=== PATIENT | female | born 1955 | race Caucasian/White ===

== ENCOUNTER 2018-07-25 15:43 | Inpatient (IN) | payer MEDICARE, MEDICAID ==
[~2018-07-25] VITALS: Ht 167.6 cm; Wt 69.4 kg
--- NOTE | 2018-07-25 15:55 | NUR ---
PT IS IN ROOM #1B. DR MOLINA EVALUATED THE PT.
[2018-07-25 16:17] LABS: BASOPHILS % (AUTO) 0.5 % (0.0-2.0); EOSINOPHILS # (AUTO) 0.1 K/uL (0.0-0.7); EOSINOPHILS % (AUTO) 1.3 % (0.0-7.0); HEMATOCRIT 39.6 % (31.2-41.9); HEMOGLOBIN 13.6 g/dL (10.9-14.3); LYMPHOCYTES # (AUTO) 1.3 K/uL (20.0-40.0); LYMPHOCYTES % (AUTO) 24.3 % (20.5-51.5); MEAN CORPUSCULAR HEMOGLOBIN 33.1 uug (24.7-32.8); MEAN CORPUSCULAR HGB CONC 35 g/dL (32.3-35.6); MEAN CORPUSCULAR VOLUME 96.1 fL (75.5-95.3); MONOCYTES # (AUTO) 0.5 K/uL (2.0-10.0); MONOCYTES % (AUTO) 9.1 % (0.0-11.0); NEUTROPHILS # (AUTO) 3.4 K/uL (1.8-8.9); NEUTROPHILS % (AUTO) 64.8 % (38.5-71.5); PLATELET COUNT (AUTO) 202 K/uL (179-408); RED BLOOD CELL COUNT(AUTO) 4.12 MIL/uL (3.63-4.92); WHITE BLOOD COUNT (AUTO) 5.2 K/uL (3.8-11.8)
[2018-07-25] MEDS ORDERED: DOCU250C14 PO (16:19)
[2018-07-25] MEDS ORDERED: ASPI81TA31 PO (16:19)
[2018-07-25] MEDS ORDERED: ESOM40CA PO (16:19)
[2018-07-25 16:36] LABS: CARBON DIOXIDE 27 mmol/L (21-32); CHLORIDE 102 mmol/L (98-107); CREATININE 0.7 mg/dL (0.6-1.3); GLUCOSE 109 mg/dL (74-106); POTASSIUM 3.7 mmol/L (3.5-5.1); UREA NITROGEN, BLOOD 14 mg/dL (7-18)
[2018-07-25 16:48] LABS: ETHANOL > 3 MG/DL (0-0)
[2018-07-25 16:50] LABS: ALANINE AMINOTRANSFERASE 33 U/L (14-59); ALKALINE PHOSPHATASE 82 U/L (50-136); ASPARTATE AMINOTRANSFERASE 19 U/L (15-37); BILIRUBIN,DIRECT 0.1 mg/dL (0.0-0.2); BILIRUBIN,TOTAL 0.5 mg/dL (0.2-1.0); CREATINE KINASE, TOTAL 40 U/L (26-192); TOTAL PROTEIN, SERUM 6.5 g/dL (6.4-8.2)
[2018-07-25 16:51] LABS: ACETAMINOPHEN < 2.0 ug/mL (10-30)
[2018-07-25] MEDS ORDERED: ACET325T53 PO (17:36)
[2018-07-25] MEDS ORDERED: ONDA4TAB5 PO (17:36)
[2018-07-25] MEDS ORDERED: BISA10SU8 RC (17:36)
[2018-07-25] MEDS ORDERED: LORA2TAB95 PO (17:36)
[2018-07-25] MEDS ORDERED: SENN-18 PO (17:36)
[2018-07-25] MEDS ORDERED: SIMV20TA6 PO (17:36)
[2018-07-25] MEDS ORDERED: MORP10SO PO (17:36)
[2018-07-25] MEDS ORDERED: OXYC40TA50 PO (17:36)
[2018-07-25] MEDS ORDERED: POLY255P19 PO (17:36)
[2018-07-25] MEDS ORDERED: TEMA30CA PO (17:36)
[2018-07-25] MEDS ORDERED: LACT10SO PO (17:36)
[2018-07-25] MEDS ORDERED: QUET25TA PO (17:36)
--- NOTE | 2018-07-25 17:47 | NUR ---
MHU WAS CALLED TO GET PT's BED ASSIGNED. NO FEMALE BEDS AVAILABLE AT THIS TIME.
[2018-07-25 17:58] LABS: *BILIRUBIN,URIN NEGATIVE (NEGATIVE); *BLOOD, URINE NEGATIVE (NEGATIVE); *CLARITY,URINE CLEAR (CLEAR); *COLOR,URINE YELLOW (YELLOW); *KETONES,URINE NEGATIVE (NEGATIVE); *PROTEIN,URINE NEGATIVE (NEGATIVE); *UROBILINOGEN,URINE 0.2 E.U./dl (NORMAL); LEUKOCYTE ESTERASE ,URINE NEGATIVE (NEGATIVE); NITRITE, URINE NEGATIVE (NEGATIVE); UGLUCOSE NEGATIVE (NEGATIVE)
[2018-07-25 18:02] LABS: *AMPHETAMINE, URINE NEGATIVE (NEGATIVE); *BARBITURATE, URINE NEGATIVE (NEGATIVE); *CANNABINOID, URINE NEGATIVE (NEGATIVE); *COCCAINE, URINE NEGATIVE (NEGATIVE); *OPIATE, URINE POSITIVE (NEGATIVE); *PHENCYCLIDINE SCREEN,URINE NEGATIVE (NEGATIVE)
--- NOTE | 2018-07-25 19:10 | NUR ---
REPORT GIVEN TO SDC TEACHER RN.
--- NOTE | 2018-07-25 19:15 | NUR ---
REPORT WAS TRANSFERED TO [facility] ROOM #130A. REPORT WAS GIVEN TO RN MHU.
[2018-07-25] MEDS ORDERED: ACETAMINOPHEN 325 MG TABLET PO PRN ×2 (20:45→21:00)
[2018-07-25] MEDS ORDERED: ONDANSETRON HCL 4 MG TABLET PO PRN (20:45)
[2018-07-25] MEDS ORDERED: Medication Not On Formulary EA (Esomeprazole Mag Trihydrate (Nexium) 40 MG) PO SCH (20:45)
[2018-07-25] MEDS ORDERED: Medication Not On Formulary EA (Lactulose (Duphalac) 30 ML) PO SCH (20:45)
[2018-07-25] MEDS ORDERED: BISACODYL 10 MG SUPP.RECT RC PRN (20:45)
[2018-07-25] MEDS ORDERED: MAGNESIUM HYDROXIDE 30 ML LIQUID UDC PO PRN (21:00)
[2018-07-25] MEDS ORDERED: MAG HYDROX/AL HYDROX/SIMETH 30 ML LIQUID UDC PO PRN (21:00)
[2018-07-25] MEDS ORDERED: Medication Not On Formulary EA (Oxycodone Hcl (Oxycontin) 40 MG) PO SCH (21:00)
[2018-07-25 21:25] VITALS: BP 134/72
[2018-07-25] MEDS: TEMAZEPAM 7.5 MG CAPSULE PO PRN (21:50)
[2018-07-25] MEDS: SIMVASTATIN 20 MG TABLET PO SCH (21:50)
[2018-07-25] MEDS: SENNOSIDES 1 TABLET PO SCH (21:50)
[2018-07-25] MEDS: DOCUSATE SODIUM 250 MG CAPSULE PO SCH (21:52)
[2018-07-25] MEDS: LORAZEPAM 0.5 MG TABLET PO PRN (23:53)
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
--- NOTE | 2018-07-26 01:35 | NUR ---
PATIENT CONTINUE DEMANDING, ARGUMENTATIVE, IRRITABLE. SHE IS YELLING STATING THAT, "THESE ARE ALL LIES. I DID NOT DO THIS, YOU ARE ALL LYING". MULTIPLE REDIRECTION GIVEN. PATIENT WAS EXPLAINED NUMEROUS TIME ABOUT THE [facility]AS[facility]; HOWEVER INEFFECTIVE. PATIENT CONTINUE DEMANDING AND YELLING. SHE ALSO STATED THAT SHE IS HAVING SEVERE NECKS PAIN. DR JEAN WAS NOTIFY AND NEW ORDER OBTAINED TO ADMINISTER OXYCODONE 10MG PO ONE TIME ONLY. ORDER NOTED. AWAITING FOR PHARMACY VERIFICATION. WILL CONTINUE TO MONITOR.
[2018-07-26] MEDS ORDERED: OXYCODONE HCL 10 MG TAB.SR.12H PO ONE (02:00)
[2018-07-26] MEDS ORDERED: OXYCODONE HCL 5 MG TABLET ONE (02:12)
[2018-07-26] MEDS ORDERED: diphenhydrAMINE 50 MG/1 ML VIAL IM STA (02:19)
[2018-07-26] MEDS ORDERED: HALOPERIDOL LACTATE 5 MG/1 ML VIAL IM STA (02:19)
[2018-07-26] MEDS ORDERED: LORAZEPAM 2 MG/1 ML VIAL IM STA (02:19)
--- NOTE | 2018-07-26 02:33 | NUR ---
Chemical Restraint Note: Pt yelling, screaming, histrionic, and crying without provocation. Pt is agitated, verbally aggressive and not redirectable. Pt attempted to crawl on the floor stating she "can't walk", after she was observed ambulating by staff earlier in the shift. Pt refused to get up from the floor. Nursing special education supervisor and staff assisted Pt to bed where she began to yell and scream again. Pt was given Ativan 0.5mg and Restoril 7.5mg previous to this episode, both ineffective. Redirection and and 1:1 interaction attempted multiple times without success. Dr Suarez notified of Pt's behavior, Haldol 5mg, Ativan 1mg, Benadryl 50g IM ordered. IM administered with Pt's cooperation. VS stable, will continue to closely monitor.
--- NOTE | 2018-07-26 04:50 | NUR ---
GPS: Pt.remains asleep at this time. In no acute resp.distress noted. Fall precautions observed. Will continue to monitor.
[2018-07-26 07:30] VITALS: BP 121/81
[2018-07-26] MEDS: ASPIRIN 81 MG TAB.CHEW PO SCH (09:00)
[2018-07-26] MEDS: DOCUSATE SODIUM 250 MG CAPSULE PO SCH (09:00)
[2018-07-26] MEDS: MIRALAX 17 GM POWD.PACK PO SCH (09:00)
[2018-07-26] MEDS: LACTULOSE 20 G/30 ML LIQUID UDC PO SCH ×3 (09:00→16:09)
[2018-07-26] MEDS ORDERED: POLYETHYLENE GLYCOL 3350 238 GM POWDER PO SCH (09:00)
--- NOTE | 2018-07-26 12:45 | NUR ---
Firearms Report: head worker completed and submitted a [employer] firearms report for a DTO certification.
[2018-07-26] MEDS: DIVALPROEX 250 MG TABLET.DR PO SCH ×2 (13:00→16:09)
--- NOTE | 2018-07-26 13:00 | NUR ---
GROUP NOTE: SW offered patient to attend group today; however, patient was asleep and audibly snoring. Patient was unable to be awoken. SW will continue to encourage pt to attend group during scheduled time in the future.
--- NOTE | 2018-07-26 13:30 | NUR ---
GPS: NURSING: MADE ROUNDS IN THE AFTERNOON FOR MY MEDICATIONS ADMINISTRATION, NOTED PATIENT IS STILL SEDATED, SLEEPING AND SNORING, ABLE TO BE AROUSE, BUT WENT BACK TO SLEEP.UNABLE TO GIVE MEDS DUE TO PATIENT BEING SEDATED.
[2018-07-26 16:02] VITALS: BP 121/71
[2018-07-26] MEDS: LORAZEPAM 0.5 MG TABLET PO PRN (16:09)
--- NOTE | 2018-07-26 17:00 | NUR ---
GPS: NURSING: RECEIVED AN ORDER TO INSERT CATHETER IF BLADDER SCAN > 500 ML PER MD FOR PATIENT RETAINING URINE. DID BLADDER SCAN OF 565ML. IN AN ATTEMPT TO INSERT THE SRIVASTAVA CATHETER, IT WAS UNSUCCESSFUL. ASK THE CHARGE NURSE FROM [facility] TO ATTEMPT THE SECOND INSERTION AND AGAIN IT WAS UNSUCCESSFUL. DID A BLADDER SCAN AND READ 425 ML, WILL CONTINUE TO MONITOR.
--- NOTE | 2018-07-26 17:15 | NUR ---
Social work note: lawn service worker assisted patient per her request to help dial phone to make a complaint to Patient Rights [[phone]]. 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 Patient also requested she receive the number for [facility] [ ], which was provided to patient.
[2018-07-26 19:57] VITALS: BP 126/70
[2018-07-26] MEDS: SIMVASTATIN 20 MG TABLET PO SCH (20:57)
[2018-07-26] MEDS: SENNOSIDES 1 TABLET PO SCH (20:57)
[2018-07-26] MEDS ORDERED: QUETIAPINE FUMARATE 25 MG TABLET PO SCH (21:00)
[2018-07-26] MEDS: OXYCODONE HCL 40 MG TAB.SR.12H PO SCH (21:05)
[2018-07-26] MEDS: TEMAZEPAM 7.5 MG CAPSULE PO PRN (22:56)
[2018-07-27] MEDS: LORAZEPAM 0.5 MG TABLET PO PRN ×4 (00:39→17:40)
[2018-07-27] MEDS: PANTOPRAZOLE SODIUM 40 MG TABLET.DR PO SCH (06:47)
[2018-07-27 07:30] VITALS: BP 129/77
--- NOTE | 2018-07-27 07:30 | NUR ---
GPS: NURSING:RECEIVED REPORT THAT THE PATIENT VOIDED FREELY X2 DURING THE NIGHT AND HAD A BOWEL MOVEMENT IN THE BEDPAN.
[2018-07-27] MEDS: DIVALPROEX 250 MG TABLET.DR PO SCH ×3 (08:51→17:40)
[2018-07-27] MEDS: QUETIAPINE FUMARATE 25 MG TABLET PO SCH (08:51)
[2018-07-27] MEDS: LACTULOSE 20 G/30 ML LIQUID UDC PO SCH ×3 (08:51→17:40)
[2018-07-27] MEDS: DOCUSATE SODIUM 250 MG CAPSULE PO SCH (08:51)
[2018-07-27] MEDS: ASPIRIN 81 MG TAB.CHEW PO SCH (08:51)
[2018-07-27] MEDS: OXYCODONE HCL 40 MG TAB.SR.12H PO SCH ×2 (08:52→20:26)
[2018-07-27] MEDS: MIRALAX 17 GM POWD.PACK PO SCH (08:52)
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
--- NOTE | 2018-07-27 15:31 | NUR ---
Discharge Planning: general lithographic worker received a voicemail from Irene, nurse case manager at [facility] [[phone]]. general lithographic worker called and spoke with Irene, who stated that she has been patient pillowcase turner at [facility] for one and a half years. Irene states that patient receives housing subsidies through "Housing for [employer]", a program through [facility]. Per Irene, patient was living at [facility] [[address], [place] [address]; ] where she was hoarding belongings and letting her room get cluttered. Due to cluttered room and behavior, patient was asked to leave and threatened with an "unlawful detainer" if she didn't. Per Irene, she tried to help patient with new placement, but patient refused all placement suggestions. Irene also states that some of patient's belongings are still there but are invested with roaches. general lithographic worker also inquired about patient's mobility. Per Irene there have been conflicting reports about patient level of mobility. According to past reports, per Irene, patient has been witnessed to walk and do yoga at [facility]. Irene also reported that patient primary care physician is Dr. Nina in [facility]. No contact number was provided. Per Irene, she would like to visit patient on Tuesday, July 31, 2018.
[2018-07-27 16:04] VITALS: BP 125/68
--- NOTE | 2018-07-27 16:25 | NUR ---
Initial Discharge Plan: Patient is a 62 year old female who currently resides at [facility] [[address], [place] [address]; ]. Per patient she would like to return to the facility to collect her belongings including her back brace, electric wheelchair, and laptop, and then go to [facility] [a [facility] she used to live at]. However, per [facility] child care coordinator, Daphne,patient is not allowed back at facility due to aggressive behavior and because patient is not on a bed hold and now no beds are available. grain ii farmworker to follow-up with facility. Patient does have a supportive contact named Irene [[phone]], who is her child care coordinator from [facility]. Per Irene, she has known patient for one year and has assisted with placement for patient. grain ii farmworker will continue to collaborate with patient and MD on a safe and proper discharge.
[2018-07-27] MEDS: SIMVASTATIN 20 MG TABLET PO SCH (20:26)
[2018-07-27] MEDS: QUETIAPINE FUMARATE 100 MG TABLET PO SCH (20:26)
[2018-07-27] MEDS: SENNOSIDES 1 TABLET PO SCH (20:27)
[2018-07-27 20:35] VITALS: BP 122/62
[2018-07-27] MEDS: TEMAZEPAM 15 MG CAPSULE PO PRN (21:02)
--- NOTE | 2018-07-27 21:04 | NUR ---
TRANSFER NOTE PATIENT TRANSFERRED TO ROOM 203 FATIMAH-PSYCH OVERFLOW AT 2115 BY 1:1 VIA VERONICA CHAIR . 1:1 SITTER TO REMAIN WITH PATIENT FOR SAFETY, PATIENT IS AT INCREASED RISK FOR FALLS, CHART TAKEN BY STAFF, REPORT GIVEN BY HELLEN DANG TO ELEUTERIO JONES, 2ND FLOOR. PATIENT IS ALERT, ORIENTED X 4, WEARING A NECK BRACE AND REQUIRES OBSERVATION Q15 FOR SAFETY.
[2018-07-28] MEDS: LORAZEPAM 0.5 MG TABLET PO PRN ×2 (00:18→13:59)
[2018-07-28] MEDS: PANTOPRAZOLE SODIUM 40 MG TABLET.DR PO SCH (06:12)
--- NOTE | 2018-07-28 06:58 | NUR ---
PATIENT ASLEEP IN BED. SLEPT AT INTERVALS. SITTER AT BEDSIDE.
--- NOTE | 2018-07-28 08:18 | NUR ---
SW DR SIMONS, NOTIFIED THAT 72 HOUR HOLD IS UP AT 1315.
[2018-07-28] MEDS: OXYCODONE HCL 40 MG TAB.SR.12H PO SCH ×2 (08:53→21:31)
[2018-07-28] MEDS: DOCUSATE SODIUM 250 MG CAPSULE PO SCH (08:54)
[2018-07-28] MEDS: DIVALPROEX 250 MG TABLET.DR PO SCH ×3 (08:59→17:00)
[2018-07-28] MEDS: MIRALAX 17 GM POWD.PACK PO SCH (08:59)
[2018-07-28] MEDS: QUETIAPINE FUMARATE 25 MG TABLET PO SCH (08:59)
[2018-07-28] MEDS: ASPIRIN 81 MG TAB.CHEW PO SCH (08:59)
--- NOTE | 2018-07-28 09:00 | NUR ---
patient provided with medication information for Seroquel and Depakote, patient refusing medication at this time. DUDLEY Back, witness to medication handout provided to patient.
[2018-07-28] MEDS: LACTULOSE 20 G/30 ML LIQUID UDC PO SCH ×3 (10:05→17:00)
[2018-07-28 12:00] VITALS: BP 126/62
[2018-07-28] MEDS: MORPHINE SULFATE IR 30 MG TABLET PO PRN ×2 (15:19→19:56)
[2018-07-28 15:20] VITALS: BP 117/72
[2018-07-28 16:00] VITALS: BP 121/64
--- NOTE | 2018-07-28 17:08 | NUR ---
Gps/Passenger Tire Inspector- Received patient from 2nd floor overflow, via emir-chair. Patient with a sitter for safety. Oriented to unit settings, safety reviewed and continue to emphasized. Wearing cervical soft collar. Deneis pain at this time. Interacting with staff, making her needs known.
--- NOTE | 2018-07-28 17:11 | NUR ---
Gps/Principal Archaeologist- Nursing report received from Abena Mckeon.
[2018-07-28 20:31] VITALS: BP 112/63
[2018-07-28] MEDS: SIMVASTATIN 20 MG TABLET PO SCH (21:04)
[2018-07-28] MEDS: QUETIAPINE FUMARATE 100 MG TABLET PO SCH (21:04)
[2018-07-28] MEDS: SENNOSIDES 1 TABLET PO SCH (21:04)
[2018-07-28] MEDS: TEMAZEPAM 15 MG CAPSULE PO PRN (22:36)
[2018-07-29] MEDS: LORAZEPAM 0.5 MG TABLET PO PRN ×2 (00:12→10:28)
[2018-07-29] MEDS: MORPHINE SULFATE IR 30 MG TABLET PO PRN ×4 (04:51→23:55)
--- NOTE | 2018-07-29 05:56 | NUR ---
GPS: REMAIN COOPERATIVE WITH CARE. TOOK MORPHINE 30 MG PO X2. ATIVAN 0.5 MG PO X1. RESTORIL 15 MG PO X1 ALL PRN THROUGH THE NIGHT. SLEPT 5:15 HRS AFTER RESTORIL PO GIVEN. REMAIN ON 1:1 SITTER @ BED SIDE FOR SAFETY. ASSISTED WITH ADL'S. CONTINUE PLAN OF CARE.
[2018-07-29] MEDS: PANTOPRAZOLE SODIUM 40 MG TABLET.DR PO SCH (06:17)
[2018-07-29 08:05] VITALS: BP 120/63
[2018-07-29] MEDS: DIVALPROEX 250 MG TABLET.DR PO SCH ×3 (08:17→17:50)
[2018-07-29] MEDS: LACTULOSE 20 G/30 ML LIQUID UDC PO SCH ×3 (08:17→17:50)
[2018-07-29] MEDS: ASPIRIN 81 MG TAB.CHEW PO SCH (08:18)
[2018-07-29] MEDS: DOCUSATE SODIUM 250 MG CAPSULE PO SCH (08:18)
[2018-07-29] MEDS: OXYCODONE HCL 40 MG TAB.SR.12H PO SCH ×2 (08:18→21:11)
[2018-07-29] MEDS: QUETIAPINE FUMARATE 25 MG TABLET PO SCH (08:18)
[2018-07-29] MEDS: MIRALAX 17 GM POWD.PACK PO SCH (08:18)
[2018-07-29 16:02] VITALS: BP 117/71
[2018-07-29 20:00] VITALS: BP 127/59
[2018-07-29] MEDS: QUETIAPINE FUMARATE 100 MG TABLET PO SCH (21:10)
[2018-07-29] MEDS: SENNOSIDES 1 TABLET PO SCH (21:10)
[2018-07-29] MEDS: SIMVASTATIN 20 MG TABLET PO SCH (21:11)
[2018-07-29] MEDS: TEMAZEPAM 15 MG CAPSULE PO PRN (21:20)
--- NOTE | 2018-07-30 00:25 | NUR ---
2300 Received report from am shift A/o x4 lying in bed with soft cervical collar and 1-1 at her side for safety. c/o back neck pain and insomnia received her routine ms contin, ms ir and Restoril for sleep. Cooperative with staff and in good spirits. Medication compliant with hs medication.
[2018-07-30] MEDS: LORAZEPAM 0.5 MG TABLET PO PRN ×2 (03:42→14:49)
[2018-07-30] MEDS: MORPHINE SULFATE IR 30 MG TABLET PO PRN ×4 (06:22→23:22)
[2018-07-30] MEDS: PANTOPRAZOLE SODIUM 40 MG TABLET.DR PO SCH (06:22)
--- NOTE | 2018-07-30 06:46 | NUR ---
Awake in bed c/o back and neck pain recieved MS 30mg Ir 1-1 remains at bedside and soft cervical collar remains around pt's neck. Addendum: 07/30/18 at 0649 by Jignesh Hale LVN Slept 4.15 hr during the shift.
[2018-07-30 07:30] VITALS: BP 117/70
[2018-07-30] MEDS: OXYCODONE HCL 40 MG TAB.SR.12H PO SCH ×2 (09:00→21:05)
[2018-07-30] MEDS: LACTULOSE 20 G/30 ML LIQUID UDC PO SCH ×3 (09:00→16:48)
[2018-07-30] MEDS: ASPIRIN 81 MG TAB.CHEW PO SCH (09:00)
[2018-07-30] MEDS: QUETIAPINE FUMARATE 25 MG TABLET PO SCH (09:00)
[2018-07-30] MEDS: MIRALAX 17 GM POWD.PACK PO SCH (09:00)
[2018-07-30] MEDS: DOCUSATE SODIUM 250 MG CAPSULE PO SCH (09:00)
[2018-07-30] MEDS: DIVALPROEX 250 MG TABLET.DR PO SCH ×3 (09:00→16:48)
[2018-07-30 19:59] VITALS: BP 112/60
[2018-07-30] MEDS: SENNOSIDES 1 TABLET PO SCH (21:01)
[2018-07-30] MEDS: QUETIAPINE FUMARATE 100 MG TABLET PO SCH (21:01)
[2018-07-30] MEDS: SIMVASTATIN 20 MG TABLET PO SCH (21:01)
[2018-07-30] MEDS: TEMAZEPAM 15 MG CAPSULE PO PRN (23:09)
[2018-07-31] MEDS: LORAZEPAM 0.5 MG TABLET PO PRN (03:46)
[2018-07-31] MEDS: PANTOPRAZOLE SODIUM 40 MG TABLET.DR PO SCH (06:07)
[2018-07-31 07:46] VITALS: BP 108/53
[2018-07-31] MEDS: MIRALAX 17 GM POWD.PACK PO SCH (09:02)
[2018-07-31] MEDS: QUETIAPINE FUMARATE 25 MG TABLET PO SCH (09:02)
[2018-07-31] MEDS: DOCUSATE SODIUM 250 MG CAPSULE PO SCH (09:02)
[2018-07-31] MEDS: ASPIRIN 81 MG TAB.CHEW PO SCH (09:03)
[2018-07-31] MEDS: OXYCODONE HCL 40 MG TAB.SR.12H PO SCH ×2 (09:03→21:23)
[2018-07-31] MEDS: LACTULOSE 20 G/30 ML LIQUID UDC PO SCH ×4 (09:04→17:06)
[2018-07-31] MEDS: DIVALPROEX 250 MG TABLET.DR PO SCH ×3 (09:05→17:06)
--- NOTE | 2018-07-31 10:46 | NUR ---
Discharge Planning: clerical and administrative workers called [facility] [[address], [place] [address]; ] at approximately 10:18am requesting to speak with Sharon ZAVALA, regarding patient not being on a 7-day bed hold despite being on Medi-Ugo. Per Arcelia noyola Karen is in a meeting and will call this technical writer back when done. clerical and administrative workers stressed the importance of SALLY calling back as so as possible as the situation is reportable to Junior. clerical and administrative workers currently awaiting return phone call. Addendum: 07/31/18 at 1225 by SKINNY BINGHAM Additional Information: clerical and administrative workers received no call back from Sharon ZAVALA. clerical and administrative workers called facility again at approximately 12:20 requesting to speak with Sharon ZAVALA. Per reyna Martinez RN, Sharon was in a "meeting" and will call back when done. clerical and administrative workers agains tressed importance of receiving a callback from Sharon.
[2018-07-31] MEDS: MORPHINE SULFATE IR 30 MG TABLET PO PRN ×2 (12:09→17:08)
--- NOTE | 2018-07-31 12:25 | NUR ---
Discharge Planning: sheet metal worker sent SNF referral to [facility] [[address] [place] [address]; ; Contact: Massimo]. sheet metal worker awaiting call back.
--- NOTE | 2018-07-31 14:25 | NUR ---
Discharge Planning: chemical tank worker made third attempt to reach SALLY Herrera, at [facility] [[address], [place] [address]; ]. chemical tank worker was again told by reyna RN, Michelle, that Sharon was unavailable. chemical tank worker informed Michelle that a report would be made to [facility] for failure to place patient on a 7-day bed hold. Per Michelle, she stated she would relay message. chemical tank worker then received a call from Deandre, chief hospital administrator, at facility who states they cannot accept patient back. chemical tank worker again told Deandre that a report would be made to [facility] and Deandre seemed to be agreeable with information and did not object to report being made. chemical tank worker made telephonic report to [facility] [[address], [address], [place] [address]; ] against [facility] for not putting patient on a 7-day bed hold despite patient having Medi-Ugo. Report was left on voicemail containing call back information at approximately 2:20pm on Monday, July 31, 2017.
--- NOTE | 2018-07-31 14:43 | NUR ---
Discharge Planning: fabric worker foreman is seeking alternative placement as [facility] is not accepting patient back. fabric worker foreman has sent fax referrals to [facility] [[address] [place] [address]; ; Contact: Sherry] and [facility] [[address], [place] [address]; ; Contact: Vivian]. fabric worker foreman awaiting call back from facilities. Addendum: 07/31/18 at 1516 by SKINNY BINGHAM Correction: fabric worker foreman sent fax to [facility] [[address] [place] [address]; ; Contact: Vivian] NOT [facility]. Patient has been accepted to [facility].
--- NOTE | 2018-07-31 16:00 | NUR ---
Discharge Planning: feed elevator worker called and spoke with Irene, care manager for patient at [facility]. Per Irene, she is unable to come and visit patient as previously spoken about (see not from 07/27). feed elevator worker informed Irene about placement situation and not being accepted back to [facility]. Irene was accepting of information and state she will assist patient in gathering her belongings from facility.
--- NOTE | 2018-07-31 16:35 | NUR ---
Discharge Planning: reinforcing metal worker received phone call from Milka at [facility] stating that the report that was made earlier to them (see previous note) should have been made to [facility] as this is where the reportable facility is located. reinforcing metal worker called and left a voicemail to [facility] [[address], [place] [address]; ] reporting [facility] [[address], [place] [address]; ] for failing to place patient on a 7-day bed hold despite patient being on Medi-Ugo.
[2018-07-31 16:57] VITALS: BP 124/80
[2018-07-31 20:14] VITALS: BP 107/58
[2018-07-31] MEDS: QUETIAPINE FUMARATE 100 MG TABLET PO SCH (21:14)
[2018-07-31] MEDS: SIMVASTATIN 20 MG TABLET PO SCH (21:14)
[2018-07-31] MEDS: SENNOSIDES 1 TABLET PO SCH (21:14)
[2018-07-31] MEDS: TEMAZEPAM 15 MG CAPSULE PO PRN (23:11)
--- NOTE | 2018-07-31 23:14 | NUR ---
GPS: Pt.requesting for a sleeping pill at this time. Restoril 15mg given PO for insomnia. Pt. all of a sudden started saying how she would chapito this hosp and the snf where she came from for bringing her here.Stated "I should be in a stroke unit". "I just had a stroke recently". Re-assured frequently by staff. Pt.is paranoid and delusional. Argumentative and refuses to listen to staff's re-direction. Attention-seeking and manipulative. Will continue to monitor for further escalation of behavior.
[2018-08-01] MEDS: LORAZEPAM 0.5 MG TABLET PO PRN ×2 (00:44→14:49)
[2018-08-01] MEDS: MORPHINE SULFATE IR 30 MG TABLET PO PRN ×2 (02:00→12:35)
[2018-08-01] MEDS: PANTOPRAZOLE SODIUM 40 MG TABLET.DR PO SCH (06:43)
[2018-08-01 07:30] VITALS: BP 107/49
[2018-08-01] MEDS: DIVALPROEX 250 MG TABLET.DR PO SCH ×2 (08:00→12:30)
[2018-08-01] MEDS: MIRALAX 17 GM POWD.PACK PO SCH (08:00)
[2018-08-01] MEDS: QUETIAPINE FUMARATE 25 MG TABLET PO SCH (08:00)
[2018-08-01] MEDS: DOCUSATE SODIUM 250 MG CAPSULE PO SCH (08:00)
[2018-08-01] MEDS: ASPIRIN 81 MG TAB.CHEW PO SCH (08:00)
[2018-08-01] MEDS: OXYCODONE HCL 40 MG TAB.SR.12H PO SCH (08:08)
[2018-08-01] MEDS: LACTULOSE 20 G/30 ML LIQUID UDC PO SCH ×2 (08:08→12:43)
--- NOTE | 2018-08-01 08:49 | NUR ---
DISCHARGE NOTE: Patient will be discharged to [facility] [[address] [place] [address]; ] and transportation will be provided by ambulance at 10:30am. Please arrange ambulance transportation for this patient. Confirmation of acceptance at facility was provided by Vivian, admissions radiation engineer, at the facility who states they are ready to accept the patient today. laundromat worker has called and left a voicemail with patient case resource manager, Irene [[phone]], informing her of patient discharge plan. Per previous conversation with Irene, she will assist patient in retrieving her belongings from previous placement. Patient is alert and oriented x3, but has exhibited impaired insight and judgment into living situation. Patient was previously living at [facility], however, they did not put patient on a 7-day bed hold despite patient being a Medi-Ugo recipient and are now stating she is not accepted back. The facility has been reported to Junior [see previous discharge planning notes]. laundromat worker has also consulted with wet end supervisor, Joy, who is in agreement with sending patient to a SNF. Patient was briefed on discharge and aware and agreeable with plan. Patient will follow-up with Dr. Bailey (personal chef) and Dr. Sagastume (psychiatrist) at the facility. Patient was provided with outpatient mental health resources including [facility] [ ], [facility] [ ], and the National Suicide Prevention Lifeline [ ]. Addendum: 08/01/18 at 1041 by SKINNY BINGHAM Additional information: laundromat worker received phone call from ankita Park radiation engineer, at [facility] at approximately 10:00am stating that they cannot accept patient at 10:30am any longer due to facility survey. Facility agreed to new pick-up time of 3:00pm. Patient will go by ambulance at 3:00pm to facility.
--- NOTE | 2018-08-01 11:02 | NUR ---
Social work note: high worker called and spoke with Rizwana social science research assistant, at [facility] [[address], [place] [address]; ] regarding patient belongings. Per patient, she has an electric wheelchair, laptop, clothing, neck brace, and a bag with miscellaneous items at facility. high worker confirmed with Rizwana that patient belongings are at facility. Per Rizwana, she will check with her certified novell administrator, Deandre, if the belongings can be dropped off at patient's new facility, [facility] [[address] [place] [address]; ] sometime this afternoon or tomorrow morning. high worker awaiting call back.
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
--- NOTE | 2018-08-01 13:45 | NUR ---
Social work note: Patient has had the phone for the entire morning making various phone calls. When geriatric social work professor asks patient for the phone as other patient's have requested to use it, patient has refused. At this time, patient still has the phone and is refusing to give it to geriatric social work professor.
--- NOTE | 2018-08-01 14:24 | NUR ---
Social work note: tailings worker and 7th grade social studies teacher, Joy, arrived to patient bedside to have discharge plan discussion. Patient, after having the phone all morning [see previous note 08/01], gave social services analyst the phone and stated she had finished her phone calls. Patient told Joy that she has been denied phone use for the past 6 days during admission, however, has been witnessed to use the phone by social services analyst [see previous note from 07/26]. Patient also stated that she needed various referrals for a hyperbaric chamber, neurology, and a primary care physician. Patient has been provided with a list of Medicare accepting family practice physicians and neurologists in the [facility]. Patient has also been provided with referrals to hyperbaric chambers including [facility] [[phone]], [facility] [[phone], and [facility] [[phone]]. All referrals given at time of discharge.
--- NOTE | 2018-08-01 15:57 | NUR ---
1000 Called [facility], spoke with HELLEN Lynne supervisor rice milling and stated she will call back. 1015 RN supervisor rice milling didn't returned call . Informed our social professionals Elizabeth about fitting room supervisor didn't returned call. therapeutic activities services worker Elizabeth communicated to Facility intake Miguelina and requesed to send patient at 3:00 pm by ambulance. 1500 All valuables and belongings returned to patient but refused to sign 1520 Patient discharged to [facility] via ambulance . Patient alert and ox4 , denies SI/HI. No delusion. No a/v hallucination noted. 1530 Called [facility], spoke to acoustical installer and put on hold 2x and disconnected x1. Called again, spoke to HELLEN Lynne supervisor rice milling and report given regarding patient mental and medical condition, medication to continue at the facility- RN verbalized understanding.
== END 2018-08-01 15:20 | DRG 885 ==
LOC: ER 15:43 → GPS 19:07 → MED 07-27 21:12 → GPSOV 07-27 23:30 → GPS 07-28 17:03
PROVIDERS: ADMIT Psychiatry & Neurology Psychiatry; ATTEND Nurse Practitioner Acute Care
DX: F20.0 Paranoid schizophrenia (principal); G89.4 Chronic pain syndrome; Z98.1 Arthrodesis status; K21.9 Gastro-esophageal reflux disease without esophagitis; G47.00 Insomnia, unspecified; Z79.899 Other long term (current) drug therapy; E78.5 Hyperlipidemia, unspecified; K59.09 Other constipation; T14.90XS Injury, unspecified, sequela; M62.81 Muscle weakness (generalized); R73.9 Hyperglycemia, unspecified; Z79.82 Long term (current) use of aspirin
CPT/HCPCS: 36415; 71045; 80307; 84443; 85025; 85730; 87086; 93005; A4663; G0480; G0480-TC; J1200; J1630; J2060; J3490